=== PATIENT | male | born 1995 | race Caucasian/White ===

== ENCOUNTER 2021-05-13 15:52 | Emergency (ER) | payer OTHER ==
[~2021-05-13] VITALS: Ht 177.8 cm; Wt 95.3 kg
[2021-05-13 16:03] VITALS: BP 136/78
--- NOTE | 2021-05-13 16:33 | NUR ---
DR. ZARATE AT PT BEDSIDE FOR FURTHER EVALUATION.
--- NOTE | 2021-05-13 16:36 | NUR ---
26 Y/O MALE C/O SOB [id number]. PT STATES HE HAS NOT SEEN PCP PRIOR TO ARRIVAL, DENIES ANY RECENT LIFE-CHANGING EVENTS. DENIES FEVER/CHILLS. DENIES N/V/D. DENIES PMH NKA
[2021-05-13 17:15] LABS: ANION GAP 12.8 (8-16); CARBON DIOXIDE 30.1 mmol/L (21-32); CREATININE 0.9 mg/dL (0.6-1.3); POTASSIUM 3.9 mmol/L (3.5-5.1)
[2021-05-13 17:41] LABS: THYROID STIMULATING HORMONE 2.43 uIU/mL (0.34-3.74)
[2021-05-13 18:37] VITALS: BP 129/64
--- NOTE | 2021-05-13 18:37 | NUR ---
Patient discharged with v/s stable. Written and verbal after care instructions given FOR PANIC ATTACKS and explained. Patient verbalized understanding. Ambulatory with steady gait. All questions addressed prior to discharge. Advised to follow up with PMD.
== END 2021-05-13 18:37 | disposition home or self-care (01) ==
LOC: MED 15:52
DX: F41.0 Panic disorder [episodic paroxysmal anxiety] (principal); R20.2 Paresthesia of skin; R06.00 Dyspnea, unspecified
CPT/HCPCS: 36415; 80048; 84443; 84484; 93005; 99284